=== PATIENT | female | born 1985 | race Caucasian/White ===

== ENCOUNTER 2019-11-16 13:08 | Emergency (ER) | payer OTHER ==
[~2019-11-16] VITALS: Ht 162.6 cm; Wt 51.7 kg
[2019-11-16 13:08] VITALS: BP_SYST 123
--- NOTE | 2019-11-16 13:08 | NUR ---
Patient to ER bed 3 to gown for evaluation. Side rails up.
--- NOTE | 2019-11-16 13:34 | NUR ---
Pt came to ER for asthma worsening over the last few days with no help from rescue inhaler. Pt resting in rwagoner, lungs auscultated clear, VSS, awaiting
--- NOTE | 2019-11-16 13:38 | NUR ---
ER at bedside examining patient.
[2019-11-16 13:49] VITALS: BP_SYST 123
--- NOTE | 2019-11-16 13:50 | NUR ---
Patient given written and verbal discharge instructions and verbalizes understanding. ER MD discussed with patient the results and treatment provided. Patient in stable condition. ID arm band removed. Rx of Prednisone given. Patient educated on pain management and to follow up with PMD. Pain Scale 0/10. Opportunity for questions provided and answered. Medication side effect fact sheet provided.
== END 2019-11-16 13:50 | disposition home or self-care (01) ==
LOC: SED 13:08
DX: J45.901 Unspecified asthma with (acute) exacerbation (principal); R06.4 Hyperventilation; R03.0 Elevated blood-pressure reading, without diagnosis of hypertension
CPT/HCPCS: 99283